=== PATIENT | female | born 1950 ===

== ENCOUNTER 2019-11-12 08:21 | Outpatient (CLI) | payer OTHER | END 2019-11-12 08:26 | disposition home or self-care (01) | LOC: SONOGRAMA 08:21 → MAMO-SONO 08:45 | PROVIDERS: ATTEND Internal Medicine Gastroenterology | DX: R14.3 Flatulence (principal); K80.20 Calculus of gallbladder without cholecystitis without obstruction; R10.13 Epigastric pain ==

== ENCOUNTER 2021-07-07 07:52 | Outpatient (CLI) | payer OTHER | END 2021-07-07 08:00 | disposition home or self-care (01) | LOC: SONOGRAMA 07:52 | PROVIDERS: ATTEND Family Medicine | DX: R10.10 Upper abdominal pain, unspecified (principal); K80.80 Other cholelithiasis without obstruction ==

== ENCOUNTER 2021-08-11 12:25 | Outpatient (CLI) | payer OTHER | END 2021-08-11 12:30 | disposition home or self-care (01) | LOC: RAD 12:25 | DX: K80.10 Calculus of gallbladder with chronic cholecystitis without obstruction (principal) ==